=== PATIENT | female | born 1965 | race Caucasian/White ===

== ENCOUNTER 2017-10-25 08:17 | Observation (INO) | payer MEDICARE, MEDICAID ==
[2017-10-25] MEDS ORDERED: Ondansetron INJ* 2 MG/ML VIAL ONE (08:37)
[2017-10-25] MEDS ORDERED: Ondansetron INJ* 2 MG/ML VIAL IV ONE (08:38)
--- NOTE | 2017-10-25 08:43 | ED ---
Abdominal Pain/Female - HPI Summary HPI Summary: This is shakeel Alan documenting for attending Dr. Bay De La Garza This patient is a 52 year old F presenting to [facility] accompanied by her with a chief complaint of abd pain since 10/24/17 PM. She endorses abd pain/ discomfort in her umbilical and epigastric areas. SHx CABG at [place] [address] Kathi Adan (sp?). Pt endorses several emetic episodes, belching, and diarrhea. Pt was sent from [facility] for surgical consult with DX of Intussusception. - History of Current Complaint Chief Complaint: EDAbdPain Stated Complaint: ABD PAIN Time Seen by Provider: 10/25/17 08:36 Hx Obtained From: Patient Onset/Duration: Lasting Days, Still Present Timing: Constant Severity Initially: Mild Severity Currently: Mild Pain Intensity: 3 Pain Scale Used: 0-10 Numeric Location: Epigastric, Umbilical Radiates: No Character: Other: - "discomfort" Aggravating Factor(s): Nothing Alleviating Factor(s): Nothing Associated Signs and Symptoms: Positive: Nausea, Vomiting, Diarrhea, Other: - excessive burping. Negative: Fever Allergies/Adverse Reactions: Allergies Allergy/AdvReac Type Severity Reaction Status Date / Time No Known Allergies Allergy Verified 10/25/17 08:29 Home Medications: Home Medications Fluoxitine Cap 20 mg PO DAILY 10/25/17 [History Confirmed 10/25/17] PMH/Surg Hx/FS Hx/Imm Hx Endocrine/Hematology History: Denies: Hx Sickle Cell Disease Sensory History: Denies: Hx Legally Blind, Hx Deafness Opthamlomology History: Denies: Hx Legally Blind EENT History: Denies: Hx Deafness - Surgical History Surgery Procedure, Year, and Place: Gastric bypass 2009 [place]. Infectious Disease History: No Infectious Disease History: Denies: Traveled Outside the [place] in Last 30 Days - Family History Known Family History: Negative: Blood Disorder - Social History Lives: With Family Alcohol Use: Rare Substance Use Type: Reports: None Smoking Status (MU): Former Smoker Review of Systems Negative: Fever Positive: Abdominal Pain, Vomiting, Diarrhea, Nausea All Other Systems Reviewed And Are Negative: Yes Physical Exam - Summary Physical Exam Summary: Appearance: Well appearing, no pain distress Skin: warm, dry, reflects adequate perfusion Head/face: normal Eyes: EOMI, MARIEL ENT: normal Neck: supple, non-tender Respiratory: CTA, breath sounds present Cardiovascular: RRR, pulses symmetrical Abdomen: tenderness around umbilical area, soft Bowel: present Musculoskeletal: normal, strength/ROM intact Neuro: normal, sensory motor intact, A&Ox3 Triage Information Reviewed: Yes Vital Signs On Initial Exam: Initial Vitals Temp Pulse Resp BP Pulse Ox 97.2 F 64 14 159/80 100 10/25/17 08:22 10/25/17 08:22 10/25/17 08:22 10/25/17 08:22 10/25/17 08:22 Vital Signs Reviewed: Yes Diagnostics - Vital Signs Vital Signs Temp Pulse Resp BP Pulse Ox 10/25/17 08:24 63 159/80 100 10/25/17 08:23 77 98 10/25/17 08:22 97.2 F 64 14 159/80 100 - Laboratory Lab Statement: Any lab studies that have been ordered have been reviewed, and results considered in the medical decision making process. Abdominal Pain Fem Course/Dx - Course Course Of Treatment: A 52-year-old (M/F) presents to the ED with a CC of abd pain since PM of 10/24/17. (+) umbilical and epigastric pain, N/V/D, burping. Gastric bypass 2010 at [place]. In the ED course, pt was given nl saline and zofran. - Diagnoses Differential Diagnosis: Positive: Bowel Obstruction, Diverticulitis, Peptic Ulcer Disease Provider Diagnoses: Abdominal pain, Intussusception - Provider Notifications Discussed Care Of Patient With: Tiago Porter Time Discussed With Above Provider: 10:00 Instructed by Provider To: Other - accepted admission Discharge - Sign-Out/Discharge Documenting (check all that apply): Patient Departure - admit - Discharge Plan Condition: Fair Disposition: ADMITTED TO [facility] Referrals: No Primary Care Phys,NOPCP [Primary Care Provider] - - Billing Disposition and Condition Condition: FAIR Disposition: Admitted to [facility]
[2017-10-25] MEDS ORDERED: NS 0.9% 1000 ML* 1,000 ML IV SCH (08:45)
[2017-10-25] MEDS ORDERED: HYDROmorphone INJ* 0.5 MG/0.5 ML SYRINGE IV PRN (10:12)
[2017-10-25] MEDS ORDERED: Ondansetron INJ* 2 MG/ML VIAL IV PRN (10:12)
[2017-10-25 10:45] LABS: ABS Basophils 0 10^3/ul (0-0.2); ABS Eosinophils 0 10^3/ul (0-0.6); ABS Lymphocytes 0.4 10^3/ul (1.0-4.8); ABS Monocytes 0.5 10^3/ul (0-0.8); ABS Neutrophils 15.4 10^3/ul (1.5-7.7); ABS Nucleated RBC 0 10^3/ul; Eosinophil % 0.1 % (0-6); Hematocrit 38 % (35-47); Hemoglobin 12.5 g/dl (12.0-16.0); Lymphocyte % 2.4 % (25-47); Mean Corpuscular HGB Conc 33 g/dl (31-36); Mean Corpuscular Hemoglobin 31 pg (27-31); Mean Corpuscular Volume 95 fL (80-97); Mean Platelet Volume 7.7 um3 (7.4-10.4); Nucleated Red Blood Cells % 0; Platelet Count 333 10^3/ul (150-450); Red Blood Count 4.01 10^6/ul (4.00-5.40); Red Cell Distribution Width 14 % (10.5-15); White Blood Count 16.3 10^3/ul (3.5-10.8)
[2017-10-25 10:57] LABS: EGFR Non-African American 127.6 (>60)
[2017-10-25] MEDS ORDERED: Pantoprazole IV* 40 MG IV SCH (12:00)
[2017-10-25] MEDS ORDERED: Scopolamine 1.5 mg* PATCH TRANSDERM SCH (12:00)
--- NOTE | 2017-10-25 14:29 | HP ---
CC: Dr. Tiago Porter HISTORY AND PHYSICAL: DATE OF ADMISSION: 10/25/17 CHIEF COMPLAINT: Abdominal pain, nausea, queasiness. HISTORY OF PRESENT ILLNESS: Ms. Ruano is a 52-year-old female with a history of Jada-en-Y gastric bypass done laparoscopically about 13 years ago. She did have fair amount of weight loss and has managed to keep the weight off. She has not had internal hernias or any other digestive problems related to the surgery. She has not required repeat surgery since then. She was in her usual state of health until approximately 10:00 last night when she started to have epigastric and left-sided abdominal pain, severe nausea, queasiness, dry heaves. She presented to the [place] [facility] and was subsequently transferred here this morning. PAST MEDICAL HISTORY: Significant for some chronic anemia. She has also had some dumping syndrome and chronic diarrhea since the surgery. PAST SURGICAL HISTORY: She has had a tonsillectomy and uvuloplasty. She has had a previous and tubal ligation. CURRENT MEDICATIONS: Include only fluoxetine 20 mg daily. ALLERGIES: There are no known medical allergies. She has had no fever, no chills, no recent accident injury or trauma, no antecedent illness. FAMILY HISTORY: Benign. There is no chronic GI problems, bleeding tendencies, or anesthesia reactions in the family. SOCIAL HISTORY: She is . She and her are here at [place] from the [facility]. She was a former smoker, quite over year ago. She occasionally drinks alcohol, occasionally uses marijuana. REVIEW OF SYSTEMS: Multisystem review is negative for chest pain, heart pain, angina pain, or previous heart irregularity. No emphysema, bronchitis, or chronic lung disease. GI history includes the previous Jada-en-Y bypass with some chronic dumping syndrome and diarrhea. She has not had this kind of nausea or vomiting before. She has no chronic renal disease. No hepatobiliary disease. No diabetes, thyroid, or other endocrine disease. She does have some chronic arthritis and she states she is disabled from the arthritis and the diarrhea. She has some anxiety and depression and also she has had some orthopedic surgeries on her hands and right arm before. PHYSICAL EXAMINATION GENERAL: She is a well-developed, well-nourished female. She does not appear acutely ill, although she looks a little wiped out. VITAL SIGNS: Show temperature 97.2, pulse 72 and regular, respirations 14 and unlabored, blood pressure 160/80, O2 saturation is 98%. NECK: Supple without any adenopathy. LUNGS: Clear bilaterally. HEART: Regular. No abnormal sounds. BREAST: Exam was done by her primary that was not repeated. ABDOMEN: Soft, flat, nondistended. Mild tenderness on the left side, but really not very impressive. No guarding or rebound tenderness and no palpable hernias or masses. Old incisions appear well healed. EXTREMITIES: Well perfused and without edema. DIAGNOSTIC STUDIES/LAB DATA: Laboratory studies done over in [place] show hypokalemia with a potassium 2.9, creatinine was 0.8. Liver chemistries are normal. Amylase is normal. TSH is normal. Coagulations normal. White blood count is elevated at 24,000; hemoglobin is 13.6; platelet count is 387. Lactic acid is 1.6. CT scan shows what appears to be intussusception on the left side of the abdomen. There is no free fluid. There is some dilation of the gastric remnant. IMPRESSION: A 52-year-old female, status post Jada-en-Y gastric bypass, now with abdominal pain, nausea, vomiting, and evidence of possible intussusception in the region of jejunojejunal anastomosis. Certainly, there is concern for internal herniation versus an intermittent intussusception, and I have discussed the case with Dr. Sandoval who will be evaluating her from the bariatric standpoint. Should be admitted for observation and we will repeat her blood work and go from there. ADDENDUM: D/W Dr Sandoval. Does not appear to be worrisome for internal hernia. More likely transient intussusception. [id number]/[facility] #: [id number] [facility]
[2017-10-25] MEDS: Heparin VIAL(*) 5000 UNITS/ML VIAL (FIVE THOUSAND) SUBCUT SCH ×2 (14:56→22:17)
[2017-10-26 05:43] LABS: ABS Basophils 0 10^3/ul (0-0.2); ABS Eosinophils 0 10^3/ul (0-0.6); ABS Lymphocytes 1.7 10^3/ul (1.0-4.8); ABS Monocytes 0.9 10^3/ul (0-0.8); ABS Neutrophils 8.9 10^3/ul (1.5-7.7); ABS Nucleated RBC 0 10^3/ul; Eosinophil % 0.4 % (0-6); Hematocrit 36 % (35-47); Hemoglobin 11.9 g/dl (12.0-16.0); Lymphocyte % 14.9 % (25-47); Mean Corpuscular HGB Conc 33 g/dl (31-36); Mean Corpuscular Hemoglobin 32 pg (27-31); Mean Corpuscular Volume 95 fL (80-97); Mean Platelet Volume 8.6 um3 (7.4-10.4); Nucleated Red Blood Cells % 0; Platelet Count 296 10^3/ul (150-450); Red Blood Count 3.77 10^6/ul (4.00-5.40); Red Cell Distribution Width 15 % (10.5-15); White Blood Count 11.6 10^3/ul (3.5-10.8)
[2017-10-26] MEDS: Heparin VIAL(*) 5000 UNITS/ML VIAL (FIVE THOUSAND) SUBCUT SCH (06:05)
[2017-10-26 08:03] VITALS: BP 116/61
--- NOTE | 2017-10-26 08:12 | PN ---
Progress Note - Progress Note Date of Service: 10/26/17 Note: HD#2 abd pain, nausea Afeb, VS noted Voiding well No pain, no nausea Hungry Abd soft, non-tender, non-distended Abd pain resolved Will start liquids Disch home D/W pt and -rec f/u w/ her bariatric surgeon at home.
--- NOTE | 2017-10-26 11:32 | DS ---
CC: Dr. Tiago Porter DISCHARGE SUMMARY: DATE OF ADMISSION: 10/25/17 DATE OF DISCHARGE: 10/26/17 PRINCIPAL ADMITTING DIAGNOSES: Nausea and abdominal pain. HOSPITAL COURSE: Ms. Ruano is a 52-year-old female, with a history of Jada-en-Y gastric bypass 13 years ago, comes in with acute nausea and abdominal pain. Her white count was elevated, although her abdominal exam was relatively benign. Her CT scan showed what appeared to be an intussusception in the left side of the abdomen. She was not felt to have evidence of internal hernia or bowel ischemia and was therefore managed nonoperatively. She was given intravenous fluids and had a very nice reso lution of her abdominal pain and her nausea. Her white count came back down as well. On the second day, she was hungry without nausea and without pain. She was started on liquids and discharged, and will follow up with her bariatric surgeon back home. We are certainly happy to see her here should t he need arise. [id number]/[facility] #: [id number]
[2017-10-28] MEDS ORDERED: Scopolamine PATCH Remove* 1 NOTE MISC PATCH OFF SCH (12:00)
== END 2017-10-26 11:00 | disposition home or self-care (01) ==
LOC: ED 08:17 → SSU 10:27
PROVIDERS: ADMIT Surgery; ATTEND Surgery
DX: R10.9 Unspecified abdominal pain (principal); R11.0 Nausea; Z98.84 Bariatric surgery status; D64.9 Anemia, unspecified
CPT/HCPCS: 36415; 80048; 85025; 96374; 96375; 99283; A9270-GY; G0378; J1644; J2405